=== PATIENT | male | born 1950 | race Caucasian/White ===

== ENCOUNTER 2017-12-22 21:23 | Emergency (ER) | payer MEDICARE, SELFPAY ==
[2017-12-22 21:32] VITALS: PULSE 74; TEMP 97.8
[2017-12-22] MEDS ORDERED: Albuterol 0.083% Inhal Sol (2.5 mg/3 mL) UD INH STA (21:57)
[2017-12-22] MEDS ORDERED: Promethazine/Cod 6.25mg-10mg/5ml Syr UD PO STA (21:59)
[2017-12-22] MEDS ORDERED: Promethazine/Cod 6.25mg-10mg/5ml Syr UD ONE (22:01)
[2017-12-22] MEDS ORDERED: Albuterol 0.083% Inhal Sol (2.5 mg/3 mL) UD ONE (22:01)
[2017-12-22 23:09] VITALS: BP 154/75; RESP 20; O2SAT 98
--- NOTE | 2017-12-22 23:19 | C.PDOC ---
History Of Present Illness 67 year old male presents to the ER with a complaint of cough, body aches, and fever for the past week. Patient reports the body aches and fever have improved but the cough still persists and he feels congested. He states he took motrin and dayquil with no relief of symptoms. Denies recent travel or sick contact. Time Seen by Provider: 12/22/17 21:38 Chief Complaint (Nursing): Flu-like Symptoms History Per: Patient History/Exam Limitations: no limitations Onset/Duration Of Symptoms: Days Current Symptoms Are (Timing): Still Present Location Of Pain: None Sick Contacts (Context): None Associated Symptoms: Fever, Cough, Myalgias Ear Symptoms: Bilateral: None Recent travel outside of the [place]: No Past Medical History Reviewed: Historical Data, Nursing Documentation, Vital Signs Vital Signs: Last Vital Signs Temp 97.8 F 12/22/17 21:29 Pulse 74 12/22/17 23:08 Resp 20 12/22/17 23:08 BP 154/75 H 12/22/17 23:08 Pulse Ox 98 12/23/17 02:52 - Medical History PMH: HTN, Hyperlipidemia Family History: States: Unknown Family Hx - Social History Hx Alcohol Use: No Hx Substance Use: No - Immunization History Hx Tetanus Toxoid Vaccination: No Hx Influenza Vaccination: No Hx Pneumococcal Vaccination: No Review Of Systems Constitutional: Positive for: Fever Respiratory: Positive for: Cough Gastrointestinal: Negative for: Nausea, Vomiting, Diarrhea Musculoskeletal: Positive for: Other (Body aches) Physical Exam - Physical Exam Appears: Non-toxic, No Acute Distress Skin: Normal Color, Warm, Dry Head: Atraumatic, Normacephalic Eye(s): bilateral: Normal Inspection Nose: Normal Oral Mucosa: Moist Throat: Normal, No Erythema, No Exudate Neck: Normal, Supple Chest: Symmetrical, No Tenderness Cardiovascular: Rhythm Regular Respiratory: No Rales, Rhonchi, No Wheezing, Other (Moderate congestion) Gastrointestinal/Abdominal: Soft, No Tenderness Neurological/Psych: Oriented x3, Normal Speech ED Course And Treatment O2 Sat by Pulse Oximetry: 98 (Room air) Pulse Ox Interpretation: Normal - Radiology CXR: Interpreted by Me, Viewed By Me CXR Interpretation: Yes: No Acute Disease. No: Infiltrates Progress Note: CXR ordered, result were negative. Phenergan with codiene and albuterol nebulizer w/ saline administered. On reevaluation, patient reports improvement of symptoms, he is resting comfortably in the ER in no distress with clear breath sounds. Will discharge home with instructions to follow up with PMD for further evaluation or return if symptoms worsen. Disposition Counseled Patient/Family Regarding: Diagnosis, Need For Followup, Rx Given - Disposition Referrals: Babita Edouard PA-C [[facility]] - Disposition: HOME/ ROUTINE Disposition Time: 23:15 Condition: STABLE Additional Instructions: Increase PO fluids Take meds as directed Return to ER if worse Prescriptions: Azithromycin [Zithromax] 250 mg PO DAILY #6 tab Benzonatate [Tessalon Perles] 100 mg PO TID #20 sgl Cetirizine HCl [Zyrtec] 10 mg PO DAILY #20 capsule Instructions: Acute Bronchitis (ED) Forms: [employer] (Tuvaluan) Print Language: MEXICAN - Clinical Impression Clinical Impression: Bronchitis - 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 - Scribe Statement The provider has reviewed the documentation as recorded by the Scribroshni Marrero All medical record entries made by the Bamibroshni were at my direction and personally dictated by me. I have reviewed the chart and agree that the record accurately reflects my personal performance of the history, physical exam, medical decision making, and the department course for this patient. I have also personally directed, reviewed, and agree with the discharge instructions and disposition.
--- NOTE | 2017-12-23 06:58 | RAD ---
Chest x-ray two views History: Chest congestion. Comparison: None available. Findings: Mild diffuse increased interstitial lung markings. Mild patchy increased markings at the lung bases. Tortuous aorta. Degenerative changes in the spine and shoulders. Impression: Mild diffuse increased interstitial lung markings. Mild patchy increased markings at the lung bases. Tortuous aorta.
== END 2017-12-22 23:25 | disposition home or self-care (01) ==
LOC: C.ER 21:23
DX: J40 Bronchitis, not specified as acute or chronic (principal); I10 Essential (primary) hypertension; E78.5 Hyperlipidemia, unspecified

== ENCOUNTER 2019-02-27 08:41 | Outpatient (CLI) | payer MEDICARE | END 2019-02-27 08:42 | disposition home or self-care (01) | LOC: C.RADH 08:41 | DX: M54.5 Low back pain (principal); M47.896 Other spondylosis, lumbar region ==

== ENCOUNTER 2019-03-14 07:51 | Outpatient (CLI) | payer MEDICARE | END 2019-03-14 07:52 | disposition home or self-care (01) | LOC: C.MRIC 07:51 | DX: M54.16 Radiculopathy, lumbar region (principal) ==